=== PATIENT | male | born 1970 | race Caucasian/White ===

== ENCOUNTER 2018-07-16 09:48 | Emergency (ER) | payer OTHER ==
[2018-07-16] MEDS ORDERED: NS(*) 0.9% 1000 ML BAG 1,000 ML IV ONE (10:03)
[2018-07-16 10:10] LABS: PLATELET COUNT, AUTOMATED 177 K/uL (150-450)
[2018-07-16] MEDS ORDERED: ASPIRIN 81 MG CHEW CHEW ONE (10:10)
--- NOTE | 2018-07-16 10:27 | EKG ---
FACILITY: [facility] [place] PATIENT NAME: RICK ORDOÑEZ : [id number] MR: [id number] V: [id number] EXAM DATE: ORDERING PHYSICIAN: MONIQUE WINTER TECHNOLOGIST: CLARENCE Hill Reason : CP Blood Pressure : / mmHG Vent. Rate : 071 BPM Atrial Rate : 071 BPM P-R Int : 144 ms QRS Dur : 088 ms QT Int : 398 ms P-R-T Axes : 042 042 028 degrees QTc Int : 432 ms Normal sinus rhythm Possible Inferior infarct , age undetermined Abnormal ECG No previous ECGs available Confirmed by REYES WADE ([id number]) on 07/16/2018 12:03:07 PM Referred By: MOY Confirmed By:REYES WADE
[2018-07-16] MEDS ORDERED: NITROGLYCERIN 0.4 MG SUBL SL ONE ×3 (10:50→11:15)
--- NOTE | 2018-07-16 10:50 | RADIOLOGY IMAGING REPORT ---
FACILITY: [facility] PATIENT NAME: Rufus Schmitt : 1970 MR: [id number] V: [id number] EXAM DATE: ORDERING PHYSICIAN: PRASHANT WINTER TECHNOLOGIST: Location: [facility] [place] Patient: Rufus Schmitt : 1970 Visit/Account:[id number] Date of Sevice: 07/16/2018 Exam type: CHEST SINGLE AP History: chest pain Comparison: None. Findings: The lungs are free of acute effusions infiltrates or edema. There is no evidence of a pneumothorax o r pneumomediastinum. The cardiac silhouette is normal in size. IMPRESSION: 1. No acute cardiopulmonary process is seen Report Dictated By: Shiloh Mcdowell MD at 07/16/2018 10:45 AM Report E-Signed By: Shiloh Mcdowell MD at 07/16/2018 10:46 AM WSN:[id number]
--- NOTE | 2018-07-16 11:01 | EKG ---
FACILITY: [facility] [place] PATIENT NAME: RICK ORDOÑEZ : [id number] MR: [id number] V: [id number] EXAM DATE: ORDERING PHYSICIAN: PRASHANT WINTER TECHNOLOGIST: LOU Test Reason : REPEAT Blood Pressure : / mmHG Vent. Rate : 076 BPM Atrial Rate : 076 BPM P-R Int : 146 ms QRS Dur : 088 ms QT Int : 398 ms P-R-T Axes : 038 054 027 degrees QTc Int : 447 ms Normal sinus rhythm Possible Inferior infarct , age undetermined Cannot rule out Anterior infarct , age undetermined Abnormal ECG No previous ECGs available Confirmed by REYES WADE ([id number]) on 07/16/2018 12:03:24 PM Referred By: MOY Confirmed By:REYES WADE
[2018-07-16] MEDS ORDERED: NITROGLYCERIN OINT 1 GM PKT TP ONE (11:55)
[2018-07-16] MEDS ORDERED: [UNRECOGNIZED DRUG - OTHER] IV ONE (12:00)
[2018-07-16] MEDS ORDERED: HEPARIN (PORC) 5000 UN/ML VIAL IVP ONE (12:00)
[2018-07-16] MEDS ORDERED: HEPARIN* SOD/D5W 25000 U/500ML 500 ML IV ONE (12:13)
[2018-07-16] MEDS ORDERED: HEPARIN* SOD/D5W 25000 U/500ML 500 ML IV SCH (12:15)
[2018-07-16] MEDS ORDERED: fentaNYL CITR 100 MCG/2 ML AMP IVP ONE (12:35)
--- NOTE | 2018-07-16 12:45 | EKG ---
FACILITY: [facility] [place] PATIENT NAME: RICK ORDOÑEZ : [id number] MR: [id number] V: [id number] EXAM DATE: ORDERING PHYSICIAN: PRASHANT WINTER TECHNOLOGIST: CLARENCE Hill Reason : REPEAT CP Blood Pressure : / mmHG Vent. Rate : 066 BPM Atrial Rate : 066 BPM P-R Int : 144 ms QRS Dur : 090 ms QT Int : 408 ms P-R-T Axes : 034 041 025 degrees QTc Int : 427 ms Normal sinus rhythm Inferior infarct (cited on or before 16-JUL-2018) Cannot rule out Anterior infarct (cited on or before 16-JUL-2018) Abnormal ECG When compared with ECG of 16-JUL-2018 10:56, No significant change was found Confirmed by REYES WADE ([id number]) on 07/17/2018 6:30:47 AM Referred By: MOY Confirmed By:REYES WADE
--- NOTE | 2018-07-16 12:50 | ER Report ---
History and Physical Time Seen By MD: 10:00 Hx. of Stated Complaint: Pt. has been having chest tightness since 1:00am. Tightness is constant and mid sternal. No cough. Non-smoker. HPI/ROS CHIEF COMPLAINT: chest pain HISTORY OF PRESENT ILLNESS: 47-year-old male presents with chest pain that began at 1 AM. Pain has been constant, substernal, feels like squeezing, and is currently 7 out of 10. Pain was worse when he was shoveling this morning. It improved slightly and he went to work. At work he did not feel well in general and thus presented here. Patient has never had similar symptoms before. He denies tobacco use, hypertension, diabetes, cholesterol. He has never had a prior cardiac workup. With the chest pain he also developed shortness of breath, especially when shoveling. That has currently resolved. No recent travel, no LE swelling, no prior hx VTE. No bloody/black stools REVIEW OF SYSTEMS: Constitutional: No fever, no chills. Eyes: No discharge. ENT: No sore throat. Cardiovascular: above Respiratory: above Gastrointestinal: No abdominal pain, no vomiting. Genitourinary: No hematuria. Musculoskeletal: No back pain. Skin: No rashes. Neurological: No headache. Remainder of the 14 system rev: Yes Allergies: Coded Allergies: No Known Drug Allergies (Unverified , 07/16/18) Constitutional Vital Sign - Last 24 Hours 07/16/18 07/16/18 07/16/18 07/16/18 09:51 09:53 09:58 10:00 Temp 97.8 Pulse 81 85 85 Resp 16 15 B/P (MAP) 148/92 148/92 (110) 148/90 (109) Pulse Ox 96 95 97 O2 Delivery Room Air 07/16/18 07/16/18 07/16/18 07/16/18 10:03 10:08 10:13 10:18 Pulse 84 76 84 ??? Resp 21 11 10 Pulse Ox 95 96 95 07/16/18 07/16/18 07/16/18 07/16/18 10:23 10:28 10:30 10:33 Pulse 79 75 Resp 15 16 B/P (MAP) 131/93 (106) Pulse Ox 94 93 95 07/16/18 07/16/18 07/16/18 07/16/18 10:38 10:43 10:48 10:53 Pulse 83 83 85 76 Resp 35 20 12 Pulse Ox 93 97 95 07/16/18 07/16/18 07/16/18 07/16/18 10:57 10:58 11:00 11:03 Pulse 84 81 Resp 14 18 B/P (MAP) 120/92 (101) 119/88 (98) Pulse Ox 94 92 07/16/18 07/16/18 07/16/18 07/16/18 11:06 11:08 11:11 11:13 Pulse 83 77 Resp 25 16 B/P (MAP) 131/84 (100) 117/77 (90) Pulse Ox 92 92 07/16/18 07/16/18 07/16/18 07/16/18 11:15 11:18 11:22 11:23 Pulse 79 74 Resp 8 24 B/P (MAP) 121/80 (94) 128/77 (94) Pulse Ox 91 91 07/16/18 07/16/18 07/16/18 07/16/18 11:28 11:30 11:35 11:40 Pulse 77 ??? Resp 17 B/P (MAP) 107/61 (76) 125/116 (119) Pulse Ox 93 07/16/18 07/16/18 07/16/18 07/16/18 11:50 12:00 12:05 12:20 Pulse 75 80 79 Resp 13 13 29 B/P (MAP) 126/76 (93) Pulse Ox 95 94 95 Physical Exam General Appearance: The patient is alert, has no immediate need for airway protection and no signs of toxicity. [ ] Eyes: Pupils equal and round no pallor or injection. ENT, Mouth: Mucous membranes are moist. Respiratory: There are no retractions, lungs are clear to auscultation. Cardiovascular: Regular rate and rhythm. [ ] Gastrointestinal: Abdomen is soft and non tender, no masses, bowel sounds normal. Neurological: alert, oriented, nad Skin: Warm and dry, no rashes. Musculoskeletal: Neck is supple non tender. Extremities are nontender, nonswollen and have full range of motion. no carotid bruit DIFFERENTIAL DIAGNOSIS: After history and physical exam differential diagnosis was considered for chest pain including but not limited to myocardial ischemia, pericarditis pulmonary embolus, chest wall pain, pleural inflammation and pulmonary infectious causes, aortic dissection, shortness of breath including but not limited to pulmonary infectious process, COPD, asthma, pulmonary embolus and congestive heart failure. Medical Decision Making Data Points Result Diagram: 07/16/1859 07/16/1859 Laboratory Hematology Test 07/16/18 09:58 07/16/18 09:59 07/16/18 12:37 Lipase 53 U/L (23-300) Red Blood Count 5.16 M/uL (4.00-5.60) Mean Corpuscular Volume 88.7 fL (80.0-96.0) Mean Corpuscular Hemoglobin 30.9 pg (26.0-33.0) Mean Corpuscular Hemoglobin Concent 34.8 g/dL (32.0-36.0) Red Cell Distribution Width 13.0 % (11.5-14.5) Mean Platelet Volume 7.4 fL (7.2-11.1) Neutrophils (%) (Auto) 73.9 % (39.4-72.5) Lymphocytes (%) (Auto) 15.6 % (17.6-49.6) Monocytes (%) (Auto) 9.1 % (4.1-12.4) Eosinophils (%) (Auto) 0.9 % (0.4-6.7) Basophils (%) (Auto) 0.5 % (0.3-1.4) Nucleated RBC Relative Count (auto) 0.1 /100WBC Neutrophils # (Auto) 7.4 K/uL (2.0-7.4) Lymphocytes # (Auto) 1.6 K/uL (1.3-3.6) Monocytes # (Auto) 0.9 K/uL (0.3-1.0) Eosinophils # (Auto) 0.1 K/uL (0.0-0.5) Basophils # (Auto) 0.0 K/uL (0.0-0.1) Nucleated RBC Absolute Count (auto) 0.01 K/uL Peripheral Blood Smear No Y/N Sodium Level 141 mmol/L (137-145) Potassium Level 3.2 mmol/L (3.5-5.0) Chloride Level 106 mmol/L (98-107) Carbon Dioxide Level 26 mmol/L (22-30) Blood Urea Nitrogen 9 mg/dl (9-21) Creatinine 0.80 mg/dl (0.66-1.25) Glomerular Filtration Rate Calc > 60.0 Random Glucose 130 mg/dl (75-110) Calcium Level 9.3 mg/dl (8.4-10.2) Total Bilirubin 0.4 mg/dl (0.2-1.3) Aspartate Amino Transf (AST/SGOT) 21 U/L (0-35) Alanine Aminotransferase (ALT/SGPT) 29 U/L (0-56) Alkaline Phosphatase 81 U/L (0-126) Troponin I < 0.012 ng/ml Total Protein 7.1 g/dl (6.3-8.2) Albumin 4.1 g/dl (3.5-5.0) Chemistry Test 07/16/18 09:58 07/16/18 09:59 07/16/18 12:37 Lipase 53 U/L (23-300) White Blood Count 10.1 k/uL (4.5-11.0) Red Blood Count 5.16 M/uL (4.00-5.60) Hemoglobin 15.9 g/dL (14.0-18.0) Hematocrit 45.8 % (42.0-52.0) Mean Corpuscular Volume 88.7 fL (80.0-96.0) Mean Corpuscular Hemoglobin 30.9 pg (26.0-33.0) Mean Corpuscular Hemoglobin Concent 34.8 g/dL (32.0-36.0) Red Cell Distribution Width 13.0 % (11.5-14.5) Platelet Count 177 K/uL (150-450) Mean Platelet Volume 7.4 fL (7.2-11.1) Neutrophils (%) (Auto) 73.9 % (39.4-72.5) Lymphocytes (%) (Auto) 15.6 % (17.6-49.6) Monocytes (%) (Auto) 9.1 % (4.1-12.4) Eosinophils (%) (Auto) 0.9 % (0.4-6.7) Basophils (%) (Auto) 0.5 % (0.3-1.4) Nucleated RBC Relative Count (auto) 0.1 /100WBC Neutrophils # (Auto) 7.4 K/uL (2.0-7.4) Lymphocytes # (Auto) 1.6 K/uL (1.3-3.6) Monocytes # (Auto) 0.9 K/uL (0.3-1.0) Eosinophils # (Auto) 0.1 K/uL (0.0-0.5) Basophils # (Auto) 0.0 K/uL (0.0-0.1) Nucleated RBC Absolute Count (auto) 0.01 K/uL Peripheral Blood Smear No Y/N Glomerular Filtration Rate Calc > 60.0 Calcium Level 9.3 mg/dl (8.4-10.2) Total Bilirubin 0.4 mg/dl (0.2-1.3) Aspartate Amino Transf (AST/SGOT) 21 U/L (0-35) Alanine Aminotransferase (ALT/SGPT) 29 U/L (0-56) Alkaline Phosphatase 81 U/L (0-126) Troponin I < 0.012 ng/ml Total Protein 7.1 g/dl (6.3-8.2) Albumin 4.1 g/dl (3.5-5.0) Coagulation Test 07/16/18 12:37 EKG/Imaging EKG Interpretation 12 lead EK (pain 7/10) Rhythm: normal sinus rhythm [place]: normal QRS: normal ST segments: < 1 mm elevation II, q wave and inv t in iii, < 1/2 elevation avF. No depressions NSR with borderline inferior elevations 12 lead EK (pain 1/10) Rhythm: normal sinus rhythm [place]: normal QRS: normal ST segments: < 1 mm elevation II, q wave and inv t in iii, < 1/2 elevation avF. No depressions NSR with borderline inferior elevations 12 lead EK (pain returns at 6/10) Rhythm: normal sinus rhythm [place]: normal QRS: normal ST segments: < 1 mm elevation II, q wave and inv t in iii, < 1/2 elevation avF. No depressions NSR with borderline inferior elevations Monitor Interpretation: Normal Sinus Rhythm ED Course/Re-evaluation ED Course Patient presents with chest pressure and shortness of breath with history and findings concerning for ACS. His EKGs show borderline inferior elevations but are non-dynamic. Patient's pain initially improved and nearly resolved with nitroglycerin. At approximately 1225, patient reports that his pain has returned. Repeat EKG at this time again without dynamic changes. Initial troponin negative. I consulted cardiology at [facility] for transfer and evaluation of need for catheter lab. [employer] agreed to transfer. Hospitalist accepted patient. I will initiate heparin. Patient understands risks and benefits of this. Patient again pain improved and hemodynamically stable in route to [facility]. Decision to Disposition Date: Jul 16, 2018 Decision to Disposition Time: 12:10 Depart Departure Latest Vital Signs Vital Signs Date Time Temp Pulse Resp B/P (MAP) Pulse Ox O2 Delivery O2 Flow Rate FiO2 07/16/18 12:20 79 29 95 07/16/18 12:00 126/76 (93) 07/16/18 09:51 97.8 Room Air Impression: Primary Impression: Acute coronary syndrome Condition: Improved Disposition: [facility] PRASHANT WINTER MD Jul 16, 2018 12:50
[2018-07-16 13:00] VITALS: BP 135/91
== END 2018-07-16 14:10 | disposition short-term general hospital (02) ==
LOC: ER 10:22
DX: I24.9 Acute ischemic heart disease, unspecified (principal)
CPT/HCPCS: 36415; 71045; 83690; 84484; 85025; 85730; 93005; 96361; 96365; 96366; 96375; 99285; J1644; J3010; J7030; 82040; 82247; 82310; 82374; 82435; 82565; 82947; 84075; 84132; 84155; 84295; 84450; 84460; 84520

== ENCOUNTER → 2018-07-16 | Outpatient (CLI) | payer OTHER | LOC: AMB 13:41 | PROVIDERS: ATTEND Nurse Practitioner | DX: R07.9 Chest pain, unspecified (principal) | CPT/HCPCS: A0425; A0426 ==